=== PATIENT | female | born 2000 | race Caucasian/White ===

== ENCOUNTER 2020-05-19 13:10 | Observation (INO) | payer OTHER ==
[~2020-05-19] VITALS: Ht 157.5 cm; Wt 50.8 kg
[2020-05-19] MEDS ORDERED: PREN-217 PO (13:36)
[2020-05-19 13:37] VITALS: BP 105/68
[2020-05-19 15:48] LABS: HIV RAPID SCREEN NON-REACTIVE (NONREACTIVE)
[2020-05-19 19:40] LABS: RAPID PLASMA REAGIN NONREACTIVE (NONREACTIVE)
== END 2020-05-19 17:00 | disposition home or self-care (01) ==
LOC: UNDODISOB 13:10 → 4S 13:10
PROVIDERS: ADMIT Obstetrics & Gynecology; ATTEND Obstetrics & Gynecology
DX: Z34.93 Encounter for supervision of normal pregnancy, unspecified, third trimester (principal); Z3A.37 37 weeks gestation of pregnancy; Z79.899 Other long term (current) drug therapy
CPT/HCPCS: 59025; 76811; 80307; 83036; 86592; 86762; 86900; 87340; 87491; 87591; 99219

== ENCOUNTER 2020-05-26 11:05 | Observation (INO) | payer OTHER ==
[~2020-05-26 11:05] MED LIST: PREN-217 PO
[2020-05-26 13:37] LABS: COVID AG,FIA SOURCE NASOPHARYNGEAL
== END 2020-05-26 11:15 | disposition home or self-care (01) ==
LOC: 4S 11:05
PROVIDERS: ADMIT Obstetrics & Gynecology; ATTEND Obstetrics & Gynecology
DX: Z34.93 Encounter for supervision of normal pregnancy, unspecified, third trimester (principal); Z20.822 Contact with and (suspected) exposure to COVID-19; Z3A.36 36 weeks gestation of pregnancy
CPT/HCPCS: 87426; 99219

== ENCOUNTER 2020-05-28 07:05 | Inpatient (IN) | payer OTHER ==
[~2020-05-28] VITALS: Ht 157.5 cm; Wt 53.1 kg
[2020-05-28] MEDS ORDERED: OXYTOCIN 30 UNITS/LACT RINGERS 500 ML IV ONE (07:45)
[2020-05-28] MEDS ORDERED: METOCLOPRAMIDE HCL 5 MG/ML 2 ML VIAL IVP PRN (07:45)
[2020-05-28] MEDS ORDERED: RINGERS SOLUTION,LACTATED 1,000 ML IV PRN (07:45)
[2020-05-28] MEDS ORDERED: CITRIC ACID/SODIUM CITRATE 30 ML SOLUTION UDCUP PO PRN (07:45)
[2020-05-28] MEDS ORDERED: METHYLERGONOVINE MALEATE 0.2 MG/ML VIAL IM PRN (07:45)
[2020-05-28] MEDS ORDERED: FentaNYL CITRATE PF 100 MCG/2 ML VIAL IVP PRN (07:45)
[2020-05-28] MEDS ORDERED: INFLUENZA VIRUS VACCINE QVS 2020-21 (6MO+)/PF 60 MCG/0.5 ML SYRINGE IM ONE (08:00)
[2020-05-28] MEDS: OXYGEN THERAPY IH SCH (08:00)
[2020-05-28 08:18] LABS: BASOPHILS % (AUTO) 0.6 % (0.0-2.0); EOSINOPHILS % (AUTO) 1.8 % (1.0-6.0); HEMATOCRIT 34.9 % (36-46); HEMOGLOBIN 11.8 g/dL (12.0-16.0); LYMPHOCYTES # (AUTO) 1.9 K/uL (1.0-4.8); LYMPHOCYTES % (AUTO) 23.5 % (22.0-44.0); MEAN CORPUSCULAR HEMOGLOBIN 32.5 pg (26.0-34.0); MEAN CORPUSCULAR HGB CONC 33.7 G/dL (31.0-37.0); MEAN CORPUSCULAR VOLUME 96 fL (80-100); MONOCYTES # (AUTO) 0.5 K/uL (0.1-1.0); MONOCYTES % (AUTO) 6.2 % (2.0-9.0); NEUTROPHILS # (AUTO) 5.6 K/uL (1.8-7.7); NEUTROPHILS % (AUTO) 67.9 % (40.0-70.0); PLATELET COUNT (AUTO)-OB 287 K/uL (150-450); RED BLOOD CELL COUNT(AUTO) 3.62 MIL/uL (4.00-5.20); RED CELL DISTRIBUTION WIDTH 13.1 % (11.5-14.5)
[2020-05-28 08:19] VITALS: BP 97/59
[2020-05-28] MEDS: RINGERS SOLUTION,LACTATED 1,000 ML IV SCH ×2 (08:42→19:36)
[2020-05-28] MEDS ORDERED: DINOPROSTONE 10 MG VAGINAL SUPPOSITORY VG ONE (09:15)
[2020-05-28] MEDS: AZITHROMYCIN 500 MG/NS 250 ML IV SCH ×2 (10:15→12:02)
[2020-05-28] MEDS ORDERED: ROPIVACAINE HCL/PF 0.2% 100 ML ED ONE (18:10)
[2020-05-28] MEDS ORDERED: ROPIVACAINE HCL/PF 0.2% 100 ML ED PRN (18:45)
[2020-05-28] MEDS ORDERED: DiphenhydrAMINE HCL 50 MG/ML VIAL IVP PRN (18:45)
[2020-05-28] MEDS ORDERED: ONDANSETRON HCL 4 MG/2 ML VIAL IVP PRN (18:45)
[2020-05-28] MEDS ORDERED: FentaNYL CITRATE PF 100 MCG/2 ML VIAL ONE (19:28)
[2020-05-28] MEDS ORDERED: BUPIVACAINE HCL/PF 0.25% 10 ML VIAL ONE (19:28)
[2020-05-28] MEDS ORDERED: OXYTOCIN 30 UNITS/LACT RINGERS 500 ML IV PRN (20:00)
[2020-05-28] MEDS ORDERED: -PHARMACY NOTE- MISC ONE (21:15)
[2020-05-28] MEDS ORDERED: MINERAL OIL 30 ML UDCUP VG ONE (23:30)
[2020-05-29] MEDS ORDERED: LIDOCAINE/PF 1% 30 ML VIAL SQ PRN (00:45)
[2020-05-29] MEDS ORDERED: LANOLIN 7 GM OINTMENT TP PRN (00:45)
[2020-05-29] MEDS ORDERED: BENZOCAINE 20%/MENTHOL 56 GM SPRAY CANISTER TP PRN (00:45)
[2020-05-29] MEDS ORDERED: OXYTOCIN 30 UNITS/LACT RINGERS 500 ML IV ONE (00:45)
[2020-05-29] MEDS ORDERED: GLYCERIN/WITCH HAZEL LEAF 40 PADS JAR TP PRN (00:45)
[2020-05-29] MEDS ORDERED: OxyCODONE HCL/ACETAMINOPHEN 5-325 MG TABLET PO PRN (00:45)
[2020-05-29] MEDS ORDERED: MINERAL OIL 30 ML UDCUP VG ONE (01:00)
[2020-05-29] MEDS: IBUPROFEN 800 MG TABLET PO PRN ×3 (01:04→17:04)
[2020-05-29] MEDS: AMPICILLIN SODIUM 2 GM/NS 100 ML IV SCH ×4 (01:48→19:33)
[2020-05-29] MEDS ORDERED: GENTAMICIN 120 MG/NACL ISO-OSM 100 ML IV ONE (02:00)
[2020-05-29] MEDS: OXYGEN THERAPY IH SCH (03:14)
[2020-05-29] MEDS ORDERED: ACETAMINOPHEN 325 MG TABLET PO PRN ×2 (06:00)
[2020-05-29] MEDS: OxyCODONE HCL/ACETAMINOPHEN 5-325 MG TABLET PO PRN ×2 (08:10→17:04)
[2020-05-29] MEDS: MAGNESIUM HYDROXIDE SUSPENSION 30 ML UDCUP PO PRN ×2 (08:11→20:39)
[2020-05-29] MEDS: GENTAMICIN 80 MG/NACL ISO-OSM 50 ML IV SCH ×2 (10:00→17:59)
[2020-05-29] MEDS: AZITHROMYCIN 500 MG/NS 250 ML IV SCH ×2 (10:35→12:36)
[2020-05-30] MEDS: AMPICILLIN SODIUM 2 GM/NS 100 ML IV SCH ×4 (01:34→20:30)
[2020-05-30] MEDS: GENTAMICIN 80 MG/NACL ISO-OSM 50 ML IV SCH ×3 (02:03→17:51)
[2020-05-30 06:30] LABS: BASOPHILS % (AUTO) 0.2 % (0.0-2.0); EOSINOPHILS % (AUTO) 0.6 % (1.0-6.0); HEMATOCRIT 30.7 % (36-46); HEMOGLOBIN 10.2 g/dL (12.0-16.0); LYMPHOCYTES # (AUTO) 1.9 K/uL (1.0-4.8); LYMPHOCYTES % (AUTO) 12.4 % (22.0-44.0); MEAN CORPUSCULAR HEMOGLOBIN 32.3 pg (26.0-34.0); MEAN CORPUSCULAR HGB CONC 33.2 G/dL (31.0-37.0); MEAN CORPUSCULAR VOLUME 97 fL (80-100); MONOCYTES # (AUTO) 0.9 K/uL (0.1-1.0); MONOCYTES % (AUTO) 6.2 % (2.0-9.0); NEUTROPHILS # (AUTO) 12.3 K/uL (1.8-7.7); NEUTROPHILS % (AUTO) 80.6 % (40.0-70.0); PLATELET COUNT (AUTO)-OB 254 K/uL (150-450); RED BLOOD CELL COUNT(AUTO) 3.15 MIL/uL (4.00-5.20); RED CELL DISTRIBUTION WIDTH 13.4 % (11.5-14.5)
[2020-05-30] MEDS: MAGNESIUM HYDROXIDE SUSPENSION 30 ML UDCUP PO PRN (07:52)
[2020-05-30] MEDS: OxyCODONE HCL/ACETAMINOPHEN 5-325 MG TABLET PO PRN ×2 (07:53→17:50)
[2020-05-30] MEDS: IBUPROFEN 800 MG TABLET PO PRN ×2 (07:53→17:50)
[2020-05-31] MEDS: GENTAMICIN 80 MG/NACL ISO-OSM 50 ML IV SCH ×2 (01:50→09:35)
[2020-05-31] MEDS: AMPICILLIN SODIUM 2 GM/NS 100 ML IV SCH ×2 (02:31→09:07)
[2020-05-31] MEDS: IBUPROFEN 800 MG TABLET PO PRN (09:07)
[2020-05-31] MEDS: MAGNESIUM HYDROXIDE SUSPENSION 30 ML UDCUP PO PRN (09:07)
[2020-05-31] MEDS ORDERED: ACET325S20 PR (10:28)
[2020-05-31] MEDS ORDERED: IBUP-2070 PO (10:29)
[2020-05-31] MEDS ORDERED: DOCU-275 PO (10:29)
[2020-05-31] MEDS ORDERED: ACET-2247 PO (10:37)
== END 2020-05-31 12:40 | disposition home or self-care (01) | DRG 807 ==
LOC: 4S 07:05 → PREOBSVTOIN 06-30 07:12
PROVIDERS: ADMIT Obstetrics & Gynecology; ATTEND Obstetrics & Gynecology
PROC: 10E0XZZ Delivery of Products of Conception, External Approach (ICD-10-PCS; principal; 2020-05-29)
PROC: 0KQM0ZZ Repair Perineum Muscle, Open Approach (ICD-10-PCS; 2020-05-29)
PROC: 10907ZC Drainage of Amniotic Fluid, Therapeutic from Products of Conception, Via Natural or Artificial Opening (ICD-10-PCS; 2020-05-29)
PROC: 3E0R3BZ Introduction of Anesthetic Agent into Spinal Canal, Percutaneous Approach (ICD-10-PCS; 2020-05-29)
PROC: 00HU33Z Insertion of Infusion Device into Spinal Canal, Percutaneous Approach (ICD-10-PCS; 2020-05-29)
DX: O98.82 Other maternal infectious and parasitic diseases complicating childbirth (principal); Z37.0 Single live birth; Z3A.39 39 weeks gestation of pregnancy; O70.1 Second degree perineal laceration during delivery
CPT/HCPCS: 86850; 86900; 86901; 90686; 99219; J0290; J0456; J1580; J2590; J2795; J3010; J3490; J7120